=== PATIENT | male | born 1975 | race African-American/Black ===

== ENCOUNTER 2020-07-19 10:32 | Emergency (ER) | payer OTHER ==
[~2020-07-19] VITALS: Ht 177.8 cm; Wt 74.8 kg
[2020-07-19] MEDS ORDERED: ALBUTEROL2.5 MG/0.1 INH (10:41)
[2020-07-19] MEDS ORDERED: PENICILLIN VK500 M1 PO (10:53)
[2020-07-19] MEDS ORDERED: IBUPROFEN 800800 M1 PO (10:53)
[2020-07-19] MEDS ORDERED: NORCO 5-325 TA1 EAC2 PO (10:53)
[2020-07-19 10:58] VITALS: BP 137/68
== END 2020-07-19 10:59 | disposition home or self-care (01) ==
LOC: M.ERS 10:32
DX: K08.89 Other specified disorders of teeth and supporting structures (principal); J45.909 Unspecified asthma, uncomplicated; Z91.041 Radiographic dye allergy status